=== PATIENT | male | born 1930 | race Caucasian/White ===

== ENCOUNTER → 2016-07-05 | Outpatient (CLI) | payer MEDICARE, MEDICAID ==
[~2016-07-05] MED LIST: APIX2.5T PO; APRACLONIDINE 1% 0.1 ML OPH ONE; LISI20TA11 PO; NIFE90TA11 PO; OPHTHALMIC IRRIG SOLUTION 120 ML ONE; PHENYLephrine 10% 5 ML OPH ONE; PROPARACAINE 0.5% 15 ML OPH ONE; TAMS-14 PO; TRAV4OP25 LEFT EYE; TROPICAMIDE 1% 3 ML OPH ONE
== END | disposition home or self-care (01) ==
LOC: RAD 08:38
PROVIDERS: ATTEND Ophthalmology
DX: H26.9 Unspecified cataract (principal)

== ENCOUNTER 2017-10-07 00:06 | Emergency (ER) | END 2017-10-07 07:45 | disposition home or self-care (01) ==